=== PATIENT | male | born 1940 | race Two or more races ===

== ENCOUNTER → 2016-08-16 | Outpatient (CLI) | payer MEDICARE, MEDICAID ==
--- NOTE | 2016-08-16 15:47 | RADRPT ---
PROCEDURE: XR pelvis/right hip. CLINICAL INDICATION: Hip pain TECHNIQUE: AP pelvis/AP and lateral right hip views performed. COMPARISON: No prior studies are available for comparison. 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 There is no evidence of loosening of the prosthesis. No hard capone failure is identified. There is moderate left hip osteoarthrosis. This is associated with joint space narrowing, subchondra l sclerosis and osteophytosis. There is normal osseous mineralization. No fractures or osseous les ions are identified. The soft tissues are unremarkable. There is arterial vascular calcification. IMPRESSION: Right total hip replacement. Moderate left hip osteoarthrosis. RPTAT: [facility] .Rafael Pringle MD, Date Time Electronically viewed and signed by .Rafael Pringle MD, on 08/16/2016 15:46 .B/
== END | disposition home or self-care (01) ==
LOC: HKI 15:35
PROVIDERS: ATTEND Orthopaedic Surgery
DX: M25.561 Pain in right knee (principal); T84.84XA Pain due to internal orthopedic prosthetic devices, implants and grafts, initial encounter; Z96.641 Presence of right artificial hip joint
CPT/HCPCS: 73502; G0463